=== PATIENT | female | born 1970 | race Caucasian/White ===

== ENCOUNTER 2017-04-28 21:58 | Emergency (ER) | payer SELFPAY ==
[~2017-04-28] VITALS: Ht 157.5 cm; Wt 97.1 kg
[2017-04-28 22:27] VITALS: Ht 157.5 cm; Wt 97.1 kg
[2017-04-29 00:18] VITALS: BP 148/82
== END 2017-04-29 00:18 | disposition home or self-care (01) ==
LOC: ED 21:58
DX: S50.811A Abrasion of right forearm, initial encounter (principal); V28.4XXA Motorcycle driver injured in noncollision transport accident in traffic accident, initial encounter; Y93.55 Activity, bike riding; Y92.411 Interstate highway as the place of occurrence of the external cause; Y99.8 Other external cause status

== ENCOUNTER 2017-05-04 21:00 | Emergency (ER) | payer MEDICAID ==
[~2017-05-04] VITALS: Ht 157.5 cm; Wt 97.1 kg
[2017-05-04 21:28] VITALS: Ht 157.5 cm; Wt 97.1 kg
[2017-05-04 23:40] VITALS: BP 150/71
== END 2017-05-04 23:40 | disposition home or self-care (01) ==
LOC: ED 21:00
DX: M79.602 Pain in left arm (principal)